=== PATIENT | female | born 1955 | race Caucasian/White ===

== ENCOUNTER 2018-04-26 15:54 | Emergency (ER) | payer OTHER ==
[~2018-04-26] VITALS: Ht 149.9 cm; Wt 56.7 kg
--- NOTE | ~2018-04-26 | EKG ---
[facility] [place] [address] ELECTROCARDIOGRAM REPORT Name: ASIA WRIGHT Room #: DEP [facility]#: [id number] Admission: 04/26/18 Attend Phys: Discharge: 04/26/18 Date of : 53 Report #: [id number] THIS REPORT FOR: //name// 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1955 Requested By: Kwabena Killian Order Number: [id number] MD: Greg Worthington Measurements Intervals [place] Rate: 60 P: 56 [place]: 181 QRS: 13 QRSD: 105 T: 33 QT: 494 QTc: 494 Interpretive Statements Sinus rhythm RSR' in V1 or V2, probably normal variant Borderline prolonged QT interval Compared to ECG 04/14/2013 05:13:21 No significant change was found Electronically Signed On 04-27-2018 8:01:04 CDT by Greg Worthington [email or web address] <ELECTRONICALLY SIGNED> By: Greg Worthington MD, [facility] 04/27/18 0801 02 02 Greg Worthington MD, [facility] /EPI
[~2018-04-26 15:54] MED LIST: ACYCLOVIR 400400 MG PO; ADVAIR 250-501 EACH IH; ATIVAN0.5 MG PO; ATIVAN1 MG PO; LISINOPRIL20 MG PO; MEDROLDOSEPACK PO; NORCO 5-325 TA1 EACH PO; OCUFLOX10 ML OP; PERCOCET 7.5-31 EACH PO; VENTOLIN17 GM INH; VIROPTIC7.5 ML OP; XANAX 0.25 MG0.25 MG PO
[2018-04-26 16:49] LABS: ABSOLUTE NEUTROPHILS 3.4 thou/uL (1.4-8.2); BASOPHILS 1.1 % (0.0-2.0); EOSINOPHILS 4.8 % (0.0-3.0); HEMATOCRIT 32.9 % (37.0-47.0); LYMPHOCYTES 24.9 % (24.0-44.0); MCH 25.6 pg (26.0-34.0); MCHC 33.4 g/dL (28.0-37.0); MCV 76.7 fL (80.0-100.0); PLATELET COUNT 363 thou/uL (150-400); POLYS 62.2 % (36.0-66.0); RBC 4.29 mil/uL (4.20-5.00); WBC 5.4 thou/uL (4.0-11.0)
[2018-04-26 16:59] LABS: ANION GAP 10 mmol/L (7-16); BUN 16 mg/dL (7-18); CALCIUM 9.3 mg/dL (8.5-10.1); CHLORIDE 106 mmol/L (98-107); CO2 26 mmol/L (21-32); GLUCOSE 96 mg/dL (74-106); POTASSIUM 3.6 mmol/L (3.5-5.1); SODIUM 142 mmol/L (136-145)
[2018-04-26 17:07] LABS: ALBUMIN 3.9 g/dL (3.4-5.0); MAGNESIUM 2.2 mg/dL (1.8-2.4); SGOT 35 U/L (15-37); SGPT 45 U/L (30-65); TOTAL BILIRUBIN 0.5 mg/dL (<0.1-1.0); TOTAL PROTEIN 7.5 g/dL (6.4-8.2); TROPONIN-I <0.06 ng/mL (<0.06)
[2018-04-26] MEDS ORDERED: GABAPENTIN 100100 MG PO (18:05)
[2018-04-26] MEDS ORDERED: NORCO 5-325 TA1 EACH PO (18:05)
[2018-04-26 18:27] VITALS: BP 190/90
== END 2018-04-26 18:27 | disposition home or self-care (01) ==
LOC: ER 15:54
PROVIDERS: Physician Assistant
DX: R51 Headache (principal); I10 Essential (primary) hypertension; G90.50 Complex regional pain syndrome I, unspecified; M32.9 Systemic lupus erythematosus, unspecified; K31.84 Gastroparesis; Z90.49 Acquired absence of other specified parts of digestive tract; Z85.841 Personal history of malignant neoplasm of brain; Z98.890 Other specified postprocedural states; Z88.8 Allergy status to other drugs, medicaments and biological substances; Z88.6 Allergy status to analgesic agent

== ENCOUNTER 2018-07-15 16:49 | Emergency (ER) | payer OTHER ==
[~2018-07-15] VITALS: Ht 149.9 cm; Wt 59.0 kg
--- NOTE | ~2018-07-15 | EKG ---
[place] [address] [email or web address] [place] [address] ELECTROCARDIOGRAM REPORT Name: ASIA WRIGHT Room #: DEP [facility]#: [id number] Admission: 07/15/18 Attend Phys: Discharge: 07/15/18 Date of : 53 Report #: [id number] THIS REPORT FOR: //name// 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
--- NOTE | ~2018-07-15 | EKG ---
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
[~2018-07-15 16:49] MED LIST changes: +GABAPENTIN 100100 MG PO
[2018-07-15 17:35] LABS: URINE BILIRUBIN NEGATIVE (Negative); URINE BLOOD TRACE (Negative); URINE CLARITY CLEAR; URINE COLOR YELLOW; URINE GLUCOSE-RANDOM* NEGATIVE (Negative); URINE KETONES NEGATIVE (Negative); URINE LEUKOCYTES-REFLEX NEGATIVE (Negative); URINE NITRITE-REFLEX NEGATIVE (Negative); URINE PROTEIN (DIPSTICK) NEGATIVE (Negative); URINE SPECIFIC GRAVITY 1.025 (1.005-1.035); URINE UROBILINOGEN 0.2 E.U./dl (0.2-1.0)
[2018-07-15 17:45] LABS: AMP/METHAMP Negative (Negative); BARBITURATES Negative (Negative); BENZODIAZEPINES Negative (Negative); COCAINE Negative (Negative); METHADONE Negative (Negative); OPIATES Negative (Negative); PCP Negative (Negative)
[2018-07-15] MEDS ORDERED: PROTONIX40 M1 PO (18:12)
[2018-07-15] MEDS ORDERED: NORVASC5 MG PO (18:13)
[2018-07-15] MEDS ORDERED: NEURONTIN 400400 M1 PO (18:14)
[2018-07-15 18:15] LABS: ABSOLUTE NEUTROPHILS 3.5 thou/uL (1.4-8.2); BASOPHILS 0.9 % (0.0-2.0); EOSINOPHILS 3.8 % (0.0-3.0); HEMATOCRIT 34.5 % (37.0-47.0); HEMOGLOBIN 11.4 gm/dL (12.0-15.0); LYMPHOCYTES 26.9 % (24.0-44.0); MCH 26.2 pg (26.0-34.0); MCHC 32.9 g/dL (28.0-37.0); MCV 79.6 fL (80.0-100.0); MONOCYTES 6.3 % (1.0-8.0); PLATELET COUNT 309 thou/uL (150-400); POLYS 62.1 % (36.0-66.0); RBC 4.33 mil/uL (4.20-5.00); RDW 15.7 % (10.5-14.5); WBC 5.6 thou/uL (4.0-11.0)
[2018-07-15] MEDS ORDERED: FLECAINIDE ACE150 MG PO (18:21)
[2018-07-15] MEDS ORDERED: TYLENOL EXTRA500 MG PO (18:22)
[2018-07-15 18:24] LABS: ANION GAP 8 mmol/L (7-16); BUN 13 mg/dL (7-18); CALCIUM 9.4 mg/dL (8.5-10.1); CHLORIDE 105 mmol/L (98-107); CO2 27 mmol/L (21-32); GLUCOSE 92 mg/dL (74-106); POTASSIUM 3.8 mmol/L (3.5-5.1); SODIUM 140 mmol/L (136-145)
[2018-07-15 18:32] LABS: TROPONIN-I <0.06 ng/mL (<0.06)
[2018-07-15] MEDS ORDERED: AUGMENTIN 500-1 EACH PO (20:07)
[2018-07-15] MEDS ORDERED: SULFACETAMIDE 115 M1 OPHTHALMIC (20:07)
[2018-07-15 20:31] VITALS: BP 165/88
== END 2018-07-15 20:32 | disposition home or self-care (01) ==
LOC: ER 16:49
PROVIDERS: Emergency Medicine
DX: M79.10 Myalgia, unspecified site (principal); R53.1 Weakness; H10.9 Unspecified conjunctivitis; R07.89 Other chest pain; J32.9 Chronic sinusitis, unspecified; F45.0 Somatization disorder

== ENCOUNTER 2018-12-26 21:53 | Emergency (ER) | payer OTHER ==
[~2018-12-26] VITALS: Ht 149.9 cm; Wt 56.7 kg
[~2018-12-26 21:53] MED LIST changes: +AUGMENTIN 500-1 EACH PO; +FLECAINIDE ACE150 MG PO; +NEURONTIN 400400 M1 PO; +NORVASC5 MG PO; +PROTONIX40 M1 PO; +SULFACETAMIDE 115 M1 OPHTHALMIC; +TYLENOL EXTRA500 MG PO
[2018-12-26] MEDS ORDERED: ZANTAC 150MG T150 MG PO (22:15)
[2018-12-26 22:45] LABS: ABSOLUTE NEUTROPHILS 5.7 thou/uL (1.4-8.2); BASOPHILS 0.8 % (0.0-2.0); EOSINOPHILS 2.9 % (0.0-3.0); HEMATOCRIT 38.6 % (37.0-47.0); HEMOGLOBIN 12.5 gm/dL (12.0-15.0); LYMPHOCYTES 16.1 % (24.0-44.0); MCH 26.5 pg (26.0-34.0); MCHC 32.5 g/dL (28.0-37.0); MCV 81.6 fL (80.0-100.0); MONOCYTES 6.1 % (1.0-8.0); PLATELET COUNT 394 thou/uL (150-400); POLYS 74.1 % (36.0-66.0); RBC 4.73 mil/uL (4.20-5.00); RDW 15.3 % (10.5-14.5); WBC 7.6 thou/uL (4.0-11.0)
[2018-12-26 22:46] LABS: ANION GAP 10 mmol/L (7-16); BUN 14 mg/dL (7-18); CALCIUM 9.7 mg/dL (8.5-10.1); CHLORIDE 104 mmol/L (98-107); CO2 29 mmol/L (21-32); CREATININE 1.1 mg/dL (0.6-1.0); GLUCOSE 109 mg/dL (74-106); POTASSIUM 4.1 mmol/L (3.5-5.1); SODIUM 143 mmol/L (136-145)
[2018-12-26 22:55] LABS: TROPONIN-I <0.06 ng/mL (<0.06)
[2018-12-26] MEDS ORDERED: PEPCID40 MG PO (23:41)
[2018-12-27 00:17] VITALS: BP 139/97
== END 2018-12-27 00:18 | disposition home or self-care (01) ==
LOC: ER 21:53
PROVIDERS: Student in an Organized Health Care Education/Training Program
DX: R09.82 Postnasal drip (principal); R11.2 Nausea with vomiting, unspecified; R51 Headache; M62.830 Muscle spasm of back; R53.83 Other fatigue; I10 Essential (primary) hypertension; I48.91 Unspecified atrial fibrillation; M32.9 Systemic lupus erythematosus, unspecified; K31.84 Gastroparesis; Z86.011 Personal history of benign neoplasm of the brain; Z88.5 Allergy status to narcotic agent; Z88.8 Allergy status to other drugs, medicaments and biological substances

== ENCOUNTER 2019-01-03 18:07 | Emergency (ER) | payer OTHER ==
[~2019-01-03] VITALS: Ht 149.9 cm; Wt 56.7 kg
[~2019-01-03 18:07] MED LIST changes: +PEPCID40 MG PO; +ZANTAC 150MG T150 MG PO
[2019-01-03 19:47] LABS: ABSOLUTE NEUTROPHILS 7.7 thou/uL (1.4-8.2); BASOPHILS 0.5 % (0.0-2.0); HEMATOCRIT 37.2 % (37.0-47.0); HEMOGLOBIN 12.1 gm/dL (12.0-15.0); MCH 27.3 pg (26.0-34.0); MCHC 32.4 g/dL (28.0-37.0); MCV 84.3 fL (80.0-100.0); MONOCYTES 6.2 % (1.0-8.0); PLATELET COUNT 295 thou/uL (150-400); POLYS 82.3 % (36.0-66.0); RBC 4.42 mil/uL (4.20-5.00); RDW 15.3 % (10.5-14.5); WBC 9.3 thou/uL (4.0-11.0)
[2019-01-03 19:56] LABS: CALCIUM 9.6 mg/dL (8.5-10.1); CREATININE 0.9 mg/dL (0.6-1.0); POTASSIUM 3.8 mmol/L (3.5-5.1)
[2019-01-03] MEDS ORDERED: DOXYCYCLINE 10100 MG PO (20:24)
[2019-01-03] MEDS ORDERED: CORICIDIN HBP1 EAC5 PO (20:27)
[2019-01-03 22:26] VITALS: BP 141/78
== END 2019-01-03 22:31 | disposition home or self-care (01) ==
LOC: ER 18:07
PROVIDERS: Student in an Organized Health Care Education/Training Program
DX: J32.1 Chronic frontal sinusitis (principal); R19.7 Diarrhea, unspecified; R11.2 Nausea with vomiting, unspecified; I10 Essential (primary) hypertension; Z90.49 Acquired absence of other specified parts of digestive tract; Z98.890 Other specified postprocedural states; Z88.8 Allergy status to other drugs, medicaments and biological substances

== ENCOUNTER 2019-04-11 21:24 | Emergency (ER) | payer OTHER ==
[~2019-04-11] VITALS: Ht 149.9 cm; Wt 59.0 kg
[~2019-04-11 21:24] MED LIST changes: +CORICIDIN HBP1 EAC5 PO; +DOXYCYCLINE 10100 MG PO
[2019-04-11] MEDS ORDERED: NEXIUM40 MG PO (21:48)
[2019-04-11 22:18] LABS: ABSOLUTE NEUTROPHILS 3.7 thou/uL (1.4-8.2); BASOPHILS 1.3 % (0.0-2.0); EOSINOPHILS 4.1 % (0.0-3.0); HEMOGLOBIN 12.2 gm/dL (12.0-15.0); MCHC 33.1 g/dL (28.0-37.0); MCV 81.6 fL (80.0-100.0); PLATELET COUNT 321 thou/uL (150-400); POLYS 60.6 % (36.0-66.0); RBC 4.53 mil/uL (4.20-5.00); WBC 6.1 thou/uL (4.0-11.0)
[2019-04-11 22:29] LABS: ANION GAP 11 mmol/L (7-16); BUN 19 mg/dL (7-18); CALCIUM 9.2 mg/dL (8.5-10.1); CHLORIDE 107 mmol/L (98-107); CO2 26 mmol/L (21-32); GLUCOSE 115 mg/dL (74-106); POTASSIUM 3.8 mmol/L (3.5-5.1); SODIUM 144 mmol/L (136-145)
[2019-04-11 22:35] LABS: TROPONIN-I <0.06 ng/mL (<0.06)
[2019-04-12 00:30] LABS: URINE BILIRUBIN NEGATIVE (Negative); URINE BLOOD TRACE (Negative); URINE CLARITY SL CLOUDY; URINE COLOR YELLOW; URINE GLUCOSE-RANDOM* NEGATIVE (Negative); URINE KETONES NEGATIVE (Negative); URINE LEUKOCYTES-REFLEX NEGATIVE (Negative); URINE NITRITE-REFLEX NEGATIVE (Negative); URINE PROTEIN (DIPSTICK) NEGATIVE (Negative); URINE SPECIFIC GRAVITY 1.015 (1.005-1.035); URINE UROBILINOGEN 0.2 E.U./dl (0.2-1.0)
[2019-04-12 00:35] LABS: AMP/METHAMP Negative (Negative); BARBITURATES Negative (Negative); BENZODIAZEPINES Negative (Negative); COCAINE Negative (Negative); METHADONE Negative (Negative); OPIATES Negative (Negative); PCP Negative (Negative)
[2019-04-12] MEDS ORDERED: NORCO 5-325 TA1 EAC1 PO (00:58)
[2019-04-12] MEDS ORDERED: SENNA-DOCUSATE1 EAC1 PO (00:58)
[2019-04-12 01:28] VITALS: BP 191/94
--- NOTE | 2019-04-14 17:22 | EKG ---
[place] [address] 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 : 1955 Requested By: Sidney Rai Order Number: [id number] MD: Frank Lange Measurements Intervals [place] Rate: 70 P: 39 [place]: 182 QRS: 22 QRSD: 92 T: 36 QT: 426 QTc: 460 Interpretive Statements Sinus rhythm Poor R-wave progression Low-voltage in chest leads Borderline ST/T abnormalities Compared to ECG 07/15/2018 19:35:19 No significant changes Electronically Signed On 04-14-2019 17:22:28 CDT by Frank Lange [email or web address] ��������������������������������������������� <ELECTRONICALLY SIGNED> ���������������������������������������� By: Frank Lange MD ��������������������������������������������� 04/14/19 1722 215 53 Frank Lange MD /EPI
== END 2019-04-12 01:29 | disposition home or self-care (01) ==
LOC: ER 21:24
PROVIDERS: Emergency Medicine
DX: S70.02XA Contusion of left hip, initial encounter (principal); G89.29 Other chronic pain; M54.5 Low back pain; R42 Dizziness and giddiness; M54.2 Cervicalgia; I10 Essential (primary) hypertension; M32.9 Systemic lupus erythematosus, unspecified; K31.84 Gastroparesis; Z88.6 Allergy status to analgesic agent; Z98.890 Other specified postprocedural states; Z79.899 Other long term (current) drug therapy; Z88.8 Allergy status to other drugs, medicaments and biological substances; W07.XXXA Fall from chair, initial encounter; Y93.89 Activity, other specified; Y92.89 Other specified places as the place of occurrence of the external cause; Y99.8 Other external cause status

== ENCOUNTER 2019-11-21 18:39 | Emergency (ER) | payer OTHER ==
[~2019-11-21] VITALS: Ht 149.9 cm; Wt 59.0 kg
[~2019-11-21 18:39] MED LIST changes: +NEXIUM40 MG PO; +NORCO 5-325 TA1 EAC1 PO; +SENNA-DOCUSATE1 EAC1 PO
[2019-11-21 20:36] LABS: ABSOLUTE NEUTROPHILS 7.8 thou/uL (1.4-8.2); BASOPHILS 0.2 % (0.0-2.0); EOSINOPHILS 0.7 % (0.0-3.0); HEMATOCRIT 38.3 % (37.0-47.0); LYMPHOCYTES 9.6 % (24.0-44.0); MCH 28.3 pg (26.0-34.0); MCHC 33.9 g/dL (28.0-37.0); MCV 83.6 fL (80.0-100.0); MONOCYTES 3.2 % (1.0-8.0); PLATELET COUNT 340 thou/uL (150-400); POLYS 86.3 % (36.0-66.0); RBC 4.58 mil/uL (4.20-5.00)
[2019-11-21 20:45] LABS: ANION GAP 9 mmol/L (7-16); BUN 22 mg/dL (7-18); CALCIUM 9.3 mg/dL (8.5-10.1); CHLORIDE 100 mmol/L (98-107); CO2 30 mmol/L (21-32); GLUCOSE 100 mg/dL (74-106); POTASSIUM 3.1 mmol/L (3.5-5.1); SODIUM 139 mmol/L (136-145)
[2019-11-21 20:55] LABS: ALBUMIN 3.9 g/dL (3.4-5.0); LIPASE 68 U/L (73-393); SGOT 19 U/L (15-37); SGPT 21 U/L (30-65); TOTAL PROTEIN 7.8 g/dL (6.4-8.2); TROPONIN-I <0.06 ng/mL (<0.06)
[2019-11-21] MEDS ORDERED: ZOFRAN ODT4 MG PO (21:48)
[2019-11-21 22:10] VITALS: BP 139/67
== END 2019-11-21 22:10 | disposition home or self-care (01) ==
LOC: ER 18:39
PROVIDERS: Emergency Medicine Emergency Medical Services
DX: E87.6 Hypokalemia (principal); R11.2 Nausea with vomiting, unspecified; R10.13 Epigastric pain; I10 Essential (primary) hypertension; I48.91 Unspecified atrial fibrillation; Z98.890 Other specified postprocedural states; Z88.6 Allergy status to analgesic agent; Z88.8 Allergy status to other drugs, medicaments and biological substances

== ENCOUNTER 2019-12-09 12:39 | Emergency (ER) | payer OTHER ==
[~2019-12-09] VITALS: Ht 149.9 cm; Wt 60.3 kg
[~2019-12-09 12:39] MED LIST changes: +ZOFRAN ODT4 MG PO
[2019-12-09] MEDS ORDERED: AMOXICILLIN875 MG PO (14:12)
[2019-12-09 16:03] LABS: URINE BILIRUBIN NEGATIVE (Negative); URINE BLOOD 1+ (Negative); URINE CLARITY CLOUDY; URINE COLOR YELLOW; URINE GLUCOSE-RANDOM* NEGATIVE (Negative); URINE KETONES NEGATIVE (Negative); URINE LEUKOCYTES-REFLEX NEGATIVE (Negative); URINE NITRITE-REFLEX NEGATIVE (Negative); URINE PROTEIN (DIPSTICK) NEGATIVE (Negative); URINE SPECIFIC GRAVITY 1.025 (1.005-1.035); URINE UROBILINOGEN 0.2 E.U./dl (0.2-1.0)
[2019-12-09 16:09] LABS: BACTERIA-REFLEX None Seen /HPF (None Seen); CASTS None Seen /LPF (None Seen); SQUAMOUS 0-3 Few /LPF (0-3); URINE RBC 0-2 Rare /HPF (0-2); URINE WBC-REFLEX 0-5 Rare /HPF (0-5)
[2019-12-09 16:10] LABS: AMORPHOUS URATES Many /LPF (None Seen)
[2019-12-09 16:14] LABS: HEMOGLOBIN 11.3 gm/dL (12.0-15.0); MCHC 32.2 g/dL (28.0-37.0); MCV 83.8 fL (80.0-100.0); RBC 4.18 mil/uL (4.20-5.00); RDW 16.6 % (10.5-14.5); WBC 5.4 thou/uL (4.0-11.0)
[2019-12-09 16:25] LABS: ANION GAP 8 mmol/L (7-16); BUN 13 mg/dL (7-18); CALCIUM 8.6 mg/dL (8.5-10.1); CHLORIDE 106 mmol/L (98-107); CO2 28 mmol/L (21-32); CREATININE 0.8 mg/dL (0.6-1.0); GLUCOSE 94 mg/dL (74-106); SODIUM 142 mmol/L (136-145)
[2019-12-09 16:36] LABS: ALBUMIN 3.6 g/dL (3.4-5.0); LIPASE 93 U/L (73-393); SGOT 18 U/L (15-37); SGPT 20 U/L (30-65); TOTAL BILIRUBIN 0.5 mg/dL (<0.1-1.0); TOTAL PROTEIN 7.2 g/dL (6.4-8.2); TROPONIN-I <0.06 ng/mL (<0.06)
[2019-12-09] MEDS ORDERED: ONDANSETRON ODT8 MG PO (16:49)
[2019-12-09] MEDS ORDERED: VENTOLIN HFA 1818 GM INH (16:51)
[2019-12-09 17:17] VITALS: BP 198/108
--- NOTE | 2019-12-11 09:45 | EKG ---
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1955 Requested By: Dedrick Loredo Order Number: [id number] MD: Greg Worthington Measurements Intervals [place] Rate: 56 P: 54 [place]: 179 QRS: 57 QRSD: 102 T: 51 QT: 499 QTc: 482 Interpretive Statements Sinus rhythm Nonspecific ST segment abnormality Compared to ECG 04/11/2019 21:54:07 No significant change was found Electronically Signed On 12-11-2019 9:43:58 CDT by Greg Worthington [email or web address] <ELECTRONICALLY SIGNED> By: Greg Worthington MD, FACC 12/11/19 0943 1655 1655 Greg Worthington MD, [facility] /EPI
== END 2019-12-09 16:50 | disposition home or self-care (01) ==
LOC: ER 12:39
PROVIDERS: Emergency Medicine
DX: J32.9 Chronic sinusitis, unspecified (principal); I10 Essential (primary) hypertension; J06.9 Acute upper respiratory infection, unspecified